=== PATIENT | male | born 1960 | race Caucasian/White ===

== ENCOUNTER 2016-11-09 07:30 | Day surgery (SDC) | payer BC ==
[2016-11-07 18:23] LABS: HEMOGLOBIN 15.1 g/dL (13.6-17.8)
[2016-11-07 18:41] LABS: BUN (BLOOD UREA NITROGEN) 26 MG/DL (6-23); CALCIUM, SERUM 9.3 MG/DL (8.5-10.4); CHLORIDE, SERUM 101 MMOL/L (96-112); CO2 (CARBON DIOXIDE) 30 MMOL/L (24-34); CREATININE 1.23 MG/DL (0.70-1.30); GFR AFRICAN AMERICAN 77 ML/MIN (>=60); GFR NON AFRICAN AMERICAN 66 ML/MIN (>=60); GLUCOSE, SERUM 97 MG/DL (60-99); POTASSIUM, SERUM 4.1 MMOL/L (3.5-5.3); SODIUM, SERUM 140 MMOL/L (135-148)
--- NOTE | ~2016-11-09 | OP ---
Record Of Operation [facility] [address] [place]. [address] NAME: CHARLIE AYERS : 64 STATUS : [facility]#: [id number] AGE: 56 ADM/REG DATE : 11/09/16 MR#: [id number] REPORT SERV DATE: 11/16/16 DICTATED BY: BASSAM FUNEZ DATE: 11/16/16 REPORT STATUS : Draft TRANSCRIBED BY: MODL DATE: 11/16/16 DATE OF PROCEDURE: 11/09/2016 PREOPERATIVE DIAGNOSIS: Nasal congestion with bilateral inferior turbinate hypertrophy. POSTOPERATIVE DIAGNOSIS: Nasal congestion with bilateral inferior turbinate hypertrophy. PROCEDURE: Bilateral inferior turbinate reduction with nasal endoscopy for removal of redundant tissue on the posterior inferior turbinates contributing to nasal obstruction. SURGEON: Bassam Funez M.D. ANESTHESIA: General endotracheal. ESTIMATED BLOOD LOSS: 15 mL. INTRAOPERATIVE FLUIDS: 800 mL crystalloid. INTRAOPERATIVE FINDINGS: Bilateral inferior turbinate hypertrophy. OPERATIVE PROCEDURE: The patient was identified in the holding room and transported to the operating room. In the operating room, the patient was placed on the operating table in the supine position. Following induction of anesthesia, the patient was intubated without difficulty. Afrin-soaked pledgets were placed in the nose, bilaterally. The inferior turbinates were injected with 1% lidocaine with 1:100,000 epinephrine, bilaterally. Beginning on the right side, an incision was created along the anterior inferior and anterior margin of the inferior turbinate. The mucosa and submucosa were elevated from the bone in the inferior turbinate. With the use of the sinus shaving instrumentation, a submucous resection of inferior turbinate tissue was then performed. A conservative excision of the bone of the inferior turbinate was then performed, limiting this excision to the anteroinferior portion of the turbinate. With the assistance of nasal endoscopy, the sinus shaving instrumentation was then used to trim the mucosa and submucosa from the posterior aspect of the inferior turbinate. In performing this maneuver, care was taken to avoid injury to the torus tubarius. The remaining inferior turbinate tissue was outfractured. A left inferior turbinate reduction with removal of tissue from the posterior aspect of the inferior turbinate was then performed in a similar fashion in the left side of the nose. With the inferior turbinates adequately outfractured, Chavez splints were applied to the nose. The patient was subsequently awakened from anesthesia, extubated in the operating room, and transported to the recovery room in good condition. The patient tolerated the procedure well. There were no apparent complications. Specimens included bilateral inferior turbinate tissue. TF/ITALO Record Of [address] [place]. [address] NAME: CHARLIE AYERS : 64 STATUS : [facility] PAT#: [id number] AGE: 56 ADM/REG DATE : 11/09/16 MR#: [id number] REPORT SERV DATE: 11/16/16 DICTATED BY: BASSAM FUNEZ DATE: 11/16/16 REPORT STATUS : Draft TRANSCRIBED BY: [place] DATE: 11/16/16 Bassam Funez M.D. / [id number] CC: Jimy Cuellar M.D.
[~2016-11-09 07:30] MED LIST: ANDROGEL1 % TOP; FLOMAX4 PO; NORCO1 TA2 PO; PRIN10 PO; ZYRTEC ALLGY10 MG PO
== END 2016-11-09 12:58 | disposition home or self-care (01) ==
LOC: SDC 07:30
PROVIDERS: Otolaryngology
PROC: 09TL8ZZ Resection of Nasal Turbinate, Via Natural or Artificial Opening Endoscopic (ICD-10-PCS; principal; 2016-11-09 09:00)
DX: J34.3 Hypertrophy of nasal turbinates (principal); J34.2 Deviated nasal septum; R09.81 Nasal congestion; I10 Essential (primary) hypertension; G47.33 Obstructive sleep apnea (adult) (pediatric); Z79.899 Other long term (current) drug therapy; Z98.890 Other specified postprocedural states; Z99.81 Dependence on supplemental oxygen; Z88.5 Allergy status to narcotic agent
CPT/HCPCS: 80048; 85014; 85018; 88304; J0330; J2250; J2405; J3010